=== PATIENT | female | born 1990 | race African-American/Black ===

== ENCOUNTER 2016-07-06 00:12 | Emergency (ER) | payer OTHER ==
[~2016-07-06] VITALS: Ht 160 cm; Wt 56.7 kg
[2016-07-06 00:13] VITALS: BP 115/78
[2016-07-06] MEDS ORDERED: VENTOLIN HFA 1818 GM (00:20)
[2016-07-06] MEDS ORDERED: CITRANATAL B-C1 EAC1 (00:20)
[2016-07-06] MEDS ORDERED: PREDNISONE 20 M20 MG PO (00:35)
== END 2016-07-06 00:45 | disposition home or self-care (01) ==
LOC: ER 00:12
DX: R22.0 Localized swelling, mass and lump, head (principal); R23.8 Other skin changes; J45.909 Unspecified asthma, uncomplicated; Z90.89 Acquired absence of other organs; Z88.6 Allergy status to analgesic agent

== ENCOUNTER 2017-09-02 11:45 | Emergency (ER) | payer OTHER ==
[~2017-09-02] VITALS: Ht 160 cm; Wt 67.6 kg
[~2017-09-02 11:45] MED LIST: CITRANATAL B-C1 EAC1; PREDNISONE 20 M20 MG PO; VENTOLIN HFA 1818 GM
[2017-09-02] MEDS ORDERED: PREDNISONE 20 M20 MG PO (12:08)
[2017-09-02] MEDS ORDERED: BENADRYL25 MG PO (12:08)
[2017-09-02] MEDS ORDERED: FAMOTIDINE 10 M10 MG PO (12:08)
[2017-09-02 12:23] VITALS: BP 122/74
== END 2017-09-02 12:22 | disposition home or self-care (01) ==
LOC: ER 11:45
DX: T78.40XA Allergy, unspecified, initial encounter (principal); X58.XXXA Exposure to other specified factors, initial encounter; J45.909 Unspecified asthma, uncomplicated; Z90.49 Acquired absence of other specified parts of digestive tract; Z88.6 Allergy status to analgesic agent

== ENCOUNTER 2017-09-08 15:28 | Emergency (ER) | payer OTHER ==
[~2017-09-08] VITALS: Ht 160 cm; Wt 67.6 kg
[~2017-09-08 15:28] MED LIST changes: +BENADRYL25 MG PO; +FAMOTIDINE 10 M10 MG PO
[2017-09-08 15:53] LABS: URINE BILIRUBIN NEGATIVE (Negative); URINE BLOOD NEGATIVE (Negative); URINE CLARITY CLEAR; URINE COLOR YELLOW; URINE GLUCOSE-RANDOM* NEGATIVE (Negative); URINE KETONES NEGATIVE (Negative); URINE LEUKOCYTES 2+ (Negative); URINE NITRITE NEGATIVE (Negative); URINE PROTEIN (DIPSTICK) NEGATIVE (Negative)
[2017-09-08 16:01] LABS: AMORPHOUS PHOSPHATES Many /LPF (None Seen); BACTERIA None Seen /HPF (None Seen); CASTS None Seen /LPF (None Seen); SQUAMOUS 4-10 Moderate /LPF (0-3); URINE RBC 0-2 Rare /HPF (0-2); URINE WBC 6-15 Few /HPF (0-5)
[2017-09-08 16:02] LABS: ABSOLUTE NEUTROPHILS 7.4 thou/uL (1.4-8.2); BASOPHILS 0.3 % (0.0-2.0); EOSINOPHILS 5.6 % (0.0-3.0); HEMATOCRIT 40.8 % (37.0-47.0); HEMOGLOBIN 13.5 gm/dL (12.0-15.0); LYMPHOCYTES 19.9 % (24.0-44.0); MCH 28.5 pg (26.0-34.0); MCV 86.3 fL (80.0-100.0); MONOCYTES 6.5 % (1.0-8.0); PLATELET COUNT 245 thou/uL (150-400); POLYS 67.7 % (36.0-66.0); RBC 4.73 mil/uL (4.20-5.00); RDW 13.6 % (10.5-14.5)
[2017-09-08 16:55] LABS: ALBUMIN 3.5 g/dL (3.4-5.0); CALCIUM 8.9 mg/dL (8.5-10.1); CREATININE 0.6 mg/dL (0.6-1.0); DIRECT BILIRUBIN 0.1 mg/dL (<0.1-0.3); POTASSIUM 4.6 mmol/L (3.5-5.1); TOTAL BILIRUBIN 0.5 mg/dL (<0.1-1.0); TOTAL PROTEIN 7.2 g/dL (6.4-8.2)
[2017-09-08] MEDS ORDERED: FLONASE 0.05%50 MCG NASAL (17:06)
[2017-09-08] MEDS ORDERED: ZOFRAN ODT4 MG PO (17:06)
[2017-09-08] MEDS ORDERED: TESSALON PERLE100 MG PO (17:06)
[2017-09-08 17:56] VITALS: BP 130/78
== END 2017-09-08 17:57 | disposition home or self-care (01) ==
LOC: ER 15:28
PROVIDERS: Emergency Medicine; Physician Assistant
DX: J06.9 Acute upper respiratory infection, unspecified (principal); H61.22 Impacted cerumen, left ear; R11.2 Nausea with vomiting, unspecified; J45.909 Unspecified asthma, uncomplicated; Z88.6 Allergy status to analgesic agent

== ENCOUNTER 2018-05-09 20:14 | Emergency (ER) | payer OTHER ==
[~2018-05-09] VITALS: Ht 160 cm; Wt 67.1 kg
[~2018-05-09 20:14] MED LIST changes: +FLONASE 0.05%50 MCG NASAL; +TESSALON PERLE100 MG PO; +ZOFRAN ODT4 MG PO
[2018-05-09 20:28] LABS: URINE BILIRUBIN NEGATIVE (Negative); URINE BLOOD 2+ (Negative); URINE CLARITY SL CLOUDY; URINE COLOR YELLOW; URINE GLUCOSE-RANDOM* NEGATIVE (Negative); URINE KETONES NEGATIVE (Negative); URINE NITRITE-REFLEX NEGATIVE (Negative); URINE PROTEIN (DIPSTICK) 2+ (Negative); URINE SPECIFIC GRAVITY >= 1.030 (1.005-1.035); URINE UROBILINOGEN 0.2 E.U./dl (0.2-1.0)
[2018-05-09 20:32] LABS: URINE LEUKOCYTES-REFLEX 2+ (Negative)
[2018-05-09 20:46] LABS: CASTS None Seen /LPF (None Seen); CRYSTALS None Seen /LPF (None Seen); SQUAMOUS 4-10 Moderate /LPF (0-3); URINE WBC-REFLEX >25 Many /HPF (0-5)
[2018-05-09 20:47] LABS: BACTERIA-REFLEX 1-9 Few /HPF (None Seen); URINE RBC 0-2 Rare /HPF (0-2)
[2018-05-09] MEDS ORDERED: FLAGYL500 M1 PO (21:36)
[2018-05-09 21:49] VITALS: BP 122/73
== END 2018-05-09 21:55 | disposition home or self-care (01) ==
LOC: ER 20:14
PROVIDERS: Emergency Medicine
DX: N76.0 Acute vaginitis (principal); J45.909 Unspecified asthma, uncomplicated; Z90.49 Acquired absence of other specified parts of digestive tract; Z88.6 Allergy status to analgesic agent

== ENCOUNTER 2018-11-11 10:30 | Emergency (ER) | payer OTHER ==
[~2018-11-11] VITALS: Ht 160 cm; Wt 71.7 kg
[~2018-11-11 10:30] MED LIST changes: +FLAGYL500 M1 PO
[2018-11-11 10:32] VITALS: BP 108/73
== END 2018-11-11 11:50 | disposition home or self-care (01) ==
LOC: ER 10:30
DX: O26.892 Other specified pregnancy related conditions, second trimester (principal); Z20.7 Contact with and (suspected) exposure to pediculosis, acariasis and other infestations; O99.512 Diseases of the respiratory system complicating pregnancy, second trimester; Z88.6 Allergy status to analgesic agent; Z3A.16 16 weeks gestation of pregnancy

== ENCOUNTER 2019-05-31 05:29 | Inpatient (IN) | payer OTHER ==
[~2019-05-31] VITALS: Ht 160 cm; Wt 64.9 kg
[2019-05-31 05:32] VITALS: BP 135/90
[2019-05-31 06:21] LABS: ABSOLUTE NEUTROPHILS 11.7 thou/uL (1.4-8.2); BASOPHILS 0.5 % (0.0-2.0); CALCIUM 9.4 mg/dL (8.5-10.1); CREATININE 0.7 mg/dL (0.6-1.0); HEMATOCRIT 42.5 % (37.0-47.0); HEMOGLOBIN 13.5 gm/dL (12.0-15.0); MCH 26.7 pg (26.0-34.0); MCHC 31.9 g/dL (28.0-37.0); MCV 83.8 fL (80.0-100.0); MONOCYTES 3.6 % (1.0-8.0); PLATELET COUNT 267 thou/uL (150-400); POLYS 80.9 % (36.0-66.0); POTASSIUM 3.8 mmol/L (3.5-5.1); RBC 5.07 mil/uL (4.20-5.00); RDW 15.7 % (10.5-14.5); WBC 15.4 thou/uL (4.0-11.0)
[2019-05-31 06:27] LABS: ALBUMIN 4.2 g/dL (3.4-5.0); TOTAL BILIRUBIN 0.7 mg/dL (<0.1-1.0); TOTAL PROTEIN 8.8 g/dL (6.4-8.2)
[2019-05-31 06:28] LABS: URINE BILIRUBIN NEGATIVE (Negative); URINE BLOOD 2+ (Negative); URINE CLARITY SL CLOUDY; URINE COLOR YELLOW; URINE GLUCOSE-RANDOM* NEGATIVE (Negative); URINE KETONES NEGATIVE (Negative); URINE NITRITE-REFLEX NEGATIVE (Negative); URINE PROTEIN (DIPSTICK) NEGATIVE (Negative); URINE SPECIFIC GRAVITY >= 1.030 (1.005-1.035); URINE UROBILINOGEN 0.2 E.U./dl (0.2-1.0)
[2019-05-31 06:33] LABS: URINE LEUKOCYTES-REFLEX 1+ (Negative)
[2019-05-31 07:10] LABS: SQUAMOUS >10 Many /LPF (0-3)
[2019-05-31 07:11] LABS: CASTS None Seen /LPF (None Seen); CRYSTALS None Seen /LPF (None Seen)
[2019-05-31 07:12] LABS: URINE RBC 0-2 Rare /HPF (0-2)
[2019-05-31 08:41] LABS: URINE BILIRUBIN NEGATIVE (Negative); URINE BLOOD NEGATIVE (Negative); URINE CLARITY CLEAR; URINE COLOR YELLOW; URINE GLUCOSE-RANDOM* NEGATIVE (Negative); URINE KETONES NEGATIVE (Negative); URINE LEUKOCYTES-REFLEX NEGATIVE (Negative); URINE NITRITE-REFLEX NEGATIVE (Negative); URINE PROTEIN (DIPSTICK) NEGATIVE (Negative); URINE SPECIFIC GRAVITY <= 1.005 (1.005-1.035); URINE UROBILINOGEN 0.2 E.U./dl (0.2-1.0)
[2019-05-31 09:34] VITALS: BP 133/88
[2019-05-31 10:00] VITALS: BP 133/88
[2019-05-31 10:24] VITALS: BP 125/71
[2019-05-31 15:31] VITALS: BP 125/82
[2019-05-31 19:52] VITALS: BP 127/47
--- NOTE | 2019-05-31 20:11 | NUR ---
Received pt from the ER, VS stable. pain managed with medication partial relief noted. NPO maintained, for procedure tomorrow, consent in the chart. Pt s up ad ekta and able to ambualte with a steady gait. POC followed, no signs or verbalizations of distress noted.
--- NOTE | 2019-06-01 04:03 | NUR ---
ASSUMED PT CARE AROUND 191. AXOX4. INDEPENDENT WITH ADLS. DENIES PAIN. NO S/S ACUTE DISTRESS NOTED OR REPORTED AT THIS TIME. WILL CONT TO MONITOR FOR ANY CHANGES IN CONDITION.
[2019-06-01 04:28] VITALS: BP 119/79
[2019-06-01 05:31] LABS: HEMATOCRIT 35.7 % (37.0-47.0); MCH 26.8 pg (26.0-34.0); MCHC 31.9 g/dL (28.0-37.0); MCV 84.1 fL (80.0-100.0); RBC 4.24 mil/uL (4.20-5.00); RDW 15.7 % (10.5-14.5); WBC 4.1 thou/uL (4.0-11.0)
[2019-06-01 05:40] LABS: HEMOGLOBIN 11.4 gm/dL (12.0-15.0)
[2019-06-01 06:02] LABS: ALBUMIN 3.2 g/dL (3.4-5.0); CALCIUM 8.2 mg/dL (8.5-10.1); CREATININE 0.5 mg/dL (0.6-1.0); POTASSIUM 3.3 mmol/L (3.5-5.1); TOTAL PROTEIN 6.8 g/dL (6.4-8.2)
[2019-06-01 07:45] VITALS: BP 135/85
[2019-06-01 15:15] VITALS: BP 147/99
[2019-06-01 15:30] VITALS: BP 131/65
[2019-06-01 15:58] VITALS: BP 143/94
[2019-06-01] MEDS ORDERED: ACETAMINOPHEN325 M1 PO (16:23)
[2019-06-01] MEDS ORDERED: OXYCODONE HCL 55 MG PO (16:23)
[2019-06-01] MEDS ORDERED: MIRALAX17 GM PO (16:24)
[2019-06-01] MEDS ORDERED: COLACE 100 MG100 MG PO (16:24)
--- NOTE | 2019-06-01 19:56 | NUR ---
Assumed pt care this am, NPO maintained til pt went down for lap vin. 4 incision sited with dermabond noted. Pain has been extreme and managed with medication, partial relief noted. DC orders were given, pt is not comfortable going home with the current pain. Gave more pain medication will observe and inform MD of progress. VS stable. POC followed. Endorsed to the night nurse to get back to the MD if DC will commence as per pain status.
[2019-06-01 19:58] VITALS: BP 132/80
--- NOTE | 2019-06-02 07:05 | NUR ---
progress pt a/o x 4 rating pain to abdomen an 7 to 8 taking 0.25 mg hydromorphone as needed for pain. sleeps after pain meds given. up with 1 to bsc voiding qs. abdomen soft with hypoactive bowels sounds reported right shoulder pain warm blanket applied denies flatus lap sites x 4 well approximated with intact dermabond. lungs clear ivf's continue plan to dc home today.
[2019-06-02 08:00] VITALS: BP 133/90
[2019-06-02 09:26] LABS: HEMATOCRIT 37.3 % (37.0-47.0); HEMOGLOBIN 11.9 gm/dL (12.0-15.0); MCH 26.6 pg (26.0-34.0); MCHC 31.9 g/dL (28.0-37.0); MCV 83.6 fL (80.0-100.0); RBC 4.46 mil/uL (4.20-5.00); RDW 15.6 % (10.5-14.5); WBC 13.9 thou/uL (4.0-11.0)
[2019-06-02 09:44] LABS: ALBUMIN 3.4 g/dL (3.4-5.0); CALCIUM 9.7 mg/dL (8.5-10.1); CREATININE 0.9 mg/dL (0.6-1.0); POTASSIUM 3.6 mmol/L (3.5-5.1); TOTAL BILIRUBIN 1.6 mg/dL (<0.1-1.0); TOTAL PROTEIN 7.5 g/dL (6.4-8.2)
[2019-06-02 12:09] VITALS: BP 134/98
--- NOTE | 2019-06-02 15:52 | NUR ---
Assumed pt care this am, vs stable though pain is verbalizaed and has radiated up to the right chest. Hypoactive bowel sounds are noted, no flatus noted. 4 lap sites c/d/i. Pain is managed with medication partial relief is noted. Informed Dr. Mendez of status, pt is now on clear liquids. POC followed.
[2019-06-02 19:27] VITALS: BP 130/83
--- NOTE | 2019-06-03 03:32 | NUR ---
progress pt a/o x4 up with sba moves slowly but steady. rating surgical pain a 7 to 8 taking .25 to .5 mg hydromorphone with good effect pt sleeps after. taking in adequate po food and fluid intake. voiding qs ivf's continue and iv flagyl continues bid.continue poc.
[2019-06-03 08:00] VITALS: BP 133/94; BP 141/97
[2019-06-03 15:00] VITALS: BP 142/92; BP 143/101
--- NOTE | 2019-06-03 15:45 | NUR ---
ALERT AND ORIENTED X4.PT IN AND OUT OF BED TO BR WITH SBA.ASSESSMENT COMPLETED.PT RATED SURGICAL SITE PAIN 6-7/10. BOTH PO AND IV PAIN MED GIVEN WITH RELIEF.PT TOOK SHOWER WITH SENIOR TELECOMMUNICATIONS TECHNICIAN ASSIST.AMBULATED IN [place]ALLWAYS SEVERAL TIMES LATER THIS AFTERNOON. GOOD ENDURANCE NOTED.BP WAS ELEVATED THIS AFTERNOON. DR QUIÑONEZ NOTIFIED AND ORDER NOTED.WILL CONTINUE TO MONITOR.
[2019-06-03 19:19] VITALS: BP 117/79
--- NOTE | 2019-06-04 06:57 | NUR ---
PROGRESS PT UP AD AL VOIDING QS, REPORTED FLATUS TOLERATING REG DIET TAKING HYDROMORPHONE FOR PAIN TOOK 2 X LAST NIGHT COMPARED TO Q3 TO 4 HRS PREVIOUS SHIFT. HOPING TO DC TODAY.
[2019-06-04 07:54] VITALS: BP 140/63
[2019-06-04 11:05] VITALS: BP 140/63
--- NOTE | 2019-06-04 12:38 | NUR ---
Assumed patient care at 0715. Vital signs are stable. She requested and received Oxycodone 5mg po at 0914 for "level six" right upper abdominal quadrant pain. Medication was effective in reducing her pain to a tolerable level. Patient will be Discharging this afternoon, as soon as her ride gets here. Dr Fernandez here to write Discharge Orders. Patient verbalized an understanding to all Discharge Instructions prior to signing Discharge Paperwork. Patient reported that she had a bowel movement this morning. Will continue to monitor this patient.
--- NOTE | 2019-06-05 17:07 | PATH ---
[facility] [address] [place] [address] PATHOLOGY RPT PROCEDURE Name: JOAN TORRES Room #: 457-P [facility] M.R.#: [id number] Admission: 05/31/19 Date of : 89 Discharge: 06/04/19 Report #: [id number] Path Case #: [id number] [facility] Accession Number: [id number] . 01 Material submitted: . gallbladder - GALLBLADDER . 01 Clinical history: . GB hydrops . 02 Diagnosis: Gallbladder, cholecystectomy: - Mild chronic cholecystitis. - Cholelithiasis. 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 02 Electronically signed: . Anne Palomo MD, Pathologist NPI- [id number] . 01 Gross description: . The specimen is received in formalin labeled "Torres, Joan, gallbladder" and consists of an intact green richard to hemorrhagic gallbladder measuring 8.5 x 2.7 x 1.8 cm. The margin is inked black. Opening reveals a lumen filled with tenacious green bile with 2 smooth green calculi measuring 0.3-0.4 cm. The mucosa is green and velvety with adherent bile with an average wall thickness of 0.1 cm. No masses are identified. Telephone Collector sections are submitted in A1. (SDY; 06/02/2019) SYU/SYU 06/02/2019 1012 Local . 02 Pathologist provided ICD-10: K80.10 . 02 CPT . 810793 Specimen Comment: A courtesy copy of this report has been sent to [phone] Specimen Comment: Report sent to / DR NARAYAN Performed at: [address], [place] [id number] MD Sharif Rome MD Phone: [phone] Performed at: [address] [id number] MD Anne Palomo MD Phone: [phone]
== END 2019-06-04 14:45 | disposition home or self-care (01) | DRG 419 ==
LOC: ER 05:29 → EROBS 09:33 → 4W 10:05
PROVIDERS: Emergency Medicine; ADMIT Surgery
PROC: 0FT44ZZ Resection of Gallbladder, Percutaneous Endoscopic Approach (ICD-10-PCS; principal; 2019-06-01)
PROC: BF121ZZ Fluoroscopy of Gallbladder using Low Osmolar Contrast (ICD-10-PCS; principal; 2019-06-01)
DX: K82.1 Hydrops of gallbladder (principal); J45.909 Unspecified asthma, uncomplicated; Z90.49 Acquired absence of other specified parts of digestive tract; Z88.6 Allergy status to analgesic agent; Z28.21 Immunization not carried out because of patient refusal
CPT/HCPCS: 10040; 50010; 50101; 50249; 50411; 50555; 51489; 52265; 52266; 54022; 54118; 55245; 55317; 56462; 56525; 56526; 57257; 70005